=== PATIENT | male | born 1995 ===

== ENCOUNTER 2016-12-25 21:11 | Emergency (ER) | payer OTHER ==
[2016-12-25 21:18] VITALS: BP 129/76
--- NOTE | 2016-12-25 22:02 | UC ---
Throat Pain/Nasal Nando HPI - HPI Summary HPI Summary: Pt c/o sudden onset nasal congestion, frontal sinus pressure generalized malaise X 1 day. Pt is a student at [employer] - History of Current Complaint Chief Complaint: UCRespiratory Stated Complaint: HEAD CONGESTION,CHILLS Time Seen by Provider: 12/25/16 21:20 Hx Obtained From: Patient Onset/Duration: Sudden Onset Severity: Moderate Associated Signs & Symptoms: Positive: Sinus Discomfort - Epiglottits Risk Factors Epiglottis Risk Factors: Sudden Onset - Allergies/Home Medications Allergies/Adverse Reactions: Allergies Allergy/AdvReac Type Severity Reaction Status Date / Time No Known Allergies Allergy Verified 12/25/16 21:18 PMH/Surg Hx/FS Hx/Imm Hx Previously Healthy: Yes - Surgical History Surgical History: Yes Surgery Procedure, Year, and Place: tonsillectomy - Family History Known Family History: Positive: Cardiac Disease - Social History Occupation: Student Lives: With Family Alcohol Use: Weekly Alcohol Amount: weekends Substance Use Type: None Smoking Status (MU): Never Smoked Tobacco Have You Smoked in the Last Year: No Review of Systems Constitutional: Chills, Fatigue Skin: Negative Eyes: Negative ENT: Sinus Congestion, Sinus Pain/Tenderness, Other - nasal congestion Respiratory: Negative Cardiovascular: Negative Gastrointestinal: Negative Genitourinary: Negative Motor: Negative Neurovascular: Negative Musculoskeletal: Myalgia - generalized malaise Neurological: Headache Psychological: Negative All Other Systems Reviewed And Are Negative: Yes Physical Exam Triage Information Reviewed: Yes Appearance: Ill-Appearing Vital Signs: Initial Vital Signs Temp 98.5 F 12/25/16 21:13 Pulse 88 12/25/16 21:13 Resp 16 12/25/16 21:13 BP 129/76 12/25/16 21:13 Pulse Ox 98 12/25/16 21:13 Vital Signs Reviewed: Yes Eye Exam: Normal ENT Exam: Other ENT: Positive: Nasal congestion, Other: - fronatal sinus tenderness Neck exam: Normal Respiratory Exam: Normal Cardiovascular Exam: Normal Musculoskeletal Exam: Normal Neurological Exam: Normal Psychological Exam: Normal Skin Exam: Normal Throat Pain/Nasal Course/Dx - Differential Dx/Diagnosis Differential Diagnosis/HQI/PQRI: Sinusitis, URI Provider Diagnoses: viral syndrome Discharge - Discharge Plan Condition: Stable Disposition: HOME Prescriptions: Pseudoephedrine-Guaifenesin [Mucinex D 60-600 mg] 1 tab PO DAILY #7 tab Patient Education Materials: Viral Syndrome (ED) Referrals: [facility] [Outside]
== END 2016-12-25 22:01 | disposition home or self-care (01) ==
LOC: UCCORT 21:11
DX: B34.9 Viral infection, unspecified (principal)
CPT/HCPCS: 87502; 99202; G0463